=== PATIENT | female | born 1940 | race Caucasian/White ===

== ENCOUNTER → 2018-11-04 | Outpatient (CLI) | payer OTHER ==
--- NOTE | 2018-11-04 11:34 | REP ---
Ultrasound of the left popliteal fossa: There is no evidence of Ngo's cyst or other focal fluid collection. The study is otherwise unremarkable. Surveillance Agent images of the right popliteal fossa are also performed. . There is no right popliteal cyst or other abnormality on the right. Electronically Signed by Terrence Bowling MD 11/04/2018 11:25 A
== END ==
LOC: M RAD 10:42
PROVIDERS: ATTEND Orthopaedic Surgery Sports Medicine
DX: M17.12 Unilateral primary osteoarthritis, left knee (principal)

== ENCOUNTER → 2019-09-23 | Outpatient (CLI) | payer OTHER ==
[~2019-09-23] MED LIST: CALC; CALC PO; COQ-100C5 PO; CVS1CAP2 PO; FISH1000 PO; FOLI1TAB11 PO; LEVO75TA4 PO; LOVA40TA PO; MAG; MAG PO; MILK300C PO; PERC5TAB12 PO; RA T500C2 PO; RED1CAP5 PO; VITA30004 PO; VITAD1000T PO; XALA0.007 OS; XARE10TA PO; ZINC; ZINC PO; collagen PO
== END ==
LOC: M LABSMTC 10:26
PROVIDERS: ATTEND Anesthesiology
DX: Z11.59 Encounter for screening for other viral diseases (principal)
CPT/HCPCS: C9803; U0003

== ENCOUNTER 2019-09-26 07:16 | Inpatient (IN) | payer OTHER, MEDICARE ==
--- NOTE | 2019-09-23 06:58 | HPE ---
DATE OF PLANNED ADMISSION: 09/26/2019 ADMITTING DIAGNOSIS: Symptomatic left knee osteoarthritis. HISTORY OF PRESENT ILLNESS: This is a pleasant 78-year-old female with continuing symptomatic left knee osteoarthritis. She consented for a left total knee arthroplasty per Dr. Black Bolton. Medical optimization shows advanced tricompartmental knee osteoarthritis. Medical optimization per Dr. Galdamez. ALLERGIES: None known to medication. Although, the patient denied allergies today, in her prior note with Dr. Bolton, it says SULFA DRUGS are an allergy, so that should be on record. MEDICATION LIST: - levothyroxine sodium 112 mcg - lovastatin 10 mg MEDICAL PROBLEM LIST: Includes: 1. Symptomatic left knee osteoarthritis. 2. Hyperlipidemia. 3. Thyroid disease. SURGICAL HISTORY: 1. Appendectomy in 2012. 2. Cataract extraction, insertion of intraocular lens in 2012. 3. History of surgery 08/05/2012. 4. History of colonoscopy 04/17/2009. 5. History of hysterectomy. SOCIAL HISTORY: Denies smoking, alcohol, or illicit drugs. She just consumes alcohol at minimum occasionally. FAMILY HISTORY: Family history is positive for hypercholesteremia, thyroid disease, cancer. PHYSICAL EXAMINATION: Respiration 24, pulse 84, temperature 97.0, weight 181.2, height 63.5, blood pressure (BP) 120/70. She is a pleasant, well-developed, well-nourished, overweight female, in no acute distress, alert and orientated times three. Mood and affect are appropriate. She is ambulating without overt antalgia. She does favor the right lower extremity. No assistive device. Normocephalic. Neck: Supple. Negative jugular venous distention (JVD) or bruits. Lungs: Clear to auscultation. Chest rises symmetrically. Heart: Regular rate and rhythm. Bowels: Soft, nontender times four with sounds. Bilateral lower extremities: Skin is intact. Benign, noninfectious looking. Left knee positive medial joint line tenderness to palpation, crepitance involving knee through flexion/extension. Patellofemoral joint (PFJ) is congruent, static, and dynamic. Negative popliteal fossa mass or pain. Some varicosity noted in the lower extremity. No evidence of irritation or phlebitis. LABS: Chest x-ray, study date 06/08/2019: No acute cardiopulmonary disease, as read by Bernabe Dee MD. EKG per [facility] is read to show no changes, although I cannot make out who reviewed this, but it states that it is unchanged from her previous EKG, which is July 2015. *GFR greater 60. That is just reviewing; otherwise, normal. ALP 26, MCHC 32.7, MPV 8.7. Remaining labs are within normal limits within this CMP. IMPRESSION: 1. Left knee symptomatic tricompartmental advanced arthritis. 2. Patient consented for a left total knee arthroplasty per Dr. Black Bolton. 3. Medical optimization per Vito Galdamez DO. 4. carbonizer to operating room (OR) 2 grams intravenous (IV) Kefzol in OR. 5. Sequential compression device (SCD) and thromboembolism deterrents (TEDs) in OR. Patient requests minimal postoperative narcotics, if possible. She has previously taking tramadol and did not feel well with it. MTDD
[~2019-09-26] VITALS: Ht 160 cm; Wt 80.7 kg
[~2019-09-26 07:16] MED LIST changes: +BUPIVACAINE LIPOSOME/PF 1.3% 20ML VIAL (13.3MG/ML)(EXPAREL)(C9290 PER1MG) As Ordered ONE; +D31000TA2 PO; +EPINEPHrine INJ 1 MG/ML 1ML AMP As Ordered ONE; +LR 1,000 ML IV ONE; -PERC5TAB12 PO; +TRANEXAMIC ACID 100 MG/ML 10ML VIAL As Ordered ONE; -VITAD1000T PO; -XARE10TA PO; +ceFAZolin 1GM VIAL (J0690 PER 500MG) As Ordered ONE; +ceFAZolin SOD 2 GM in IV 1 EA IV ONE
[2019-09-26] MEDS ORDERED: ROPIvacaine 0.5% 30ML INJECTION (J2795 PER 1MG) ONE (07:17)
[2019-09-26] MEDS ORDERED: LIDOCAINE 1% MDV 20ML VIAL ONE (07:17)
[2019-09-26] MEDS ORDERED: dexameTHASONE 10MG/1ML VIAL PRES.FREE (J1100 PER 1MG) ONE (07:17)
[2019-09-26] MEDS ORDERED: MIDAZOLAM INJ 2MG/2ML VIAL (J2250 PER 1MG) As Ordered ONE ×2 (08:23→10:26)
[2019-09-26] MEDS ORDERED: fentaNYL 100 MCG/2 ML INJECTION (J3010) As Ordered ONE (08:23)
[2019-09-26] MEDS: MIDAZOLAM INJ 2MG/2ML VIAL (J2250 PER 1MG) IV PRN ×2 (08:55→08:57)
[2019-09-26] MEDS ORDERED: fentaNYL 100 MCG/2 ML INJECTION (J3010) IV PRN ×2 (09:00→11:15)
[2019-09-26] MEDS ORDERED: propofoL 500 MG/50 ML VIAL As Ordered ONE (10:26)
[2019-09-26] MEDS: LR 1,000 ML IV SCH (11:15)
[2019-09-26] MEDS ORDERED: MORPHINE 2 MG/ML 1ML VIAL (J2270) IV PRN (11:15)
[2019-09-26] MEDS ORDERED: PERCOCET 5MG/325MG TAB PO PRN ×2 (11:15→20:45)
[2019-09-26] MEDS ORDERED: MORPHINE 4 MG/ML 1ML VIAL/SYRINGE (J2270) IV PRN (11:15)
[2019-09-26] MEDS ORDERED: LR 1,000 ML IV SCH (11:15)
[2019-09-26] MEDS ORDERED: ONDANSETRON 4MG/2ML VIAL IV PRN ×2 (11:15)
[2019-09-26] MEDS ORDERED: oxyCODONE 5MG TAB PO PRN (11:15)
--- NOTE | 2019-09-26 11:22 | IPN ---
DATE: 09/26/2019 The patient is seen and examined. She wishes to go ahead with a left total knee arthroplasty. She understands the nature this the risks of bleeding, infection, damage to nerves, vessels, persistent pain, wear loosening, blood clots, medical problems, , among others.
[2019-09-26] MEDS ORDERED: MEPERIDINE INJ 25 MG/ML VIAL (J2175) As Ordered ONE (11:29)
[2019-09-26] MEDS ORDERED: MEPERIDINE INJ 25 MG/ML VIAL (J2175) IV PRN (11:45)
[2019-09-26 13:45] VITALS: BP 132/70
--- NOTE | 2019-09-26 14:10 | REP ---
LEFT KNEE, TWO VIEWS: AP and lateral views of the left knee performed. Total knee prosthesis is placed. Osseous structures are intact and well aligned. Metallic skin ying are seen anteriorly. Electronically Signed by Terrence Ibarra MD 09/26/2019 07:32 P
[2019-09-26 14:15] VITALS: BP 127/70
--- NOTE | 2019-09-26 15:04 | HPEPDOC ---
General Date of Admission 09/26/19 Date of Service: Sep 26, 2019 Chief Complaint The patient is a 78-year-old female admitted with a reason for visit of Left Knee Osteoarthritis. Source: Patient History of Present Illness Consultation report. Consultation requested by Dr Bolton: for medical comanagement. HISTORY OF PRESENT ILLNESS: This is a pleasant 78-year-old female with PMH of hyperlipidemia and hypothyroid admitted s/p elective left total knee arthroplasty for advanced tricompartmental osteoarthritis. At present pateint complains of left knee sharp stabbing pain about 6/10 intensity with no radiation at the surgical site. No other complaints. Home Medications Scheduled Folic Acid (Folic Acid) 1 Mg Tablet, 1 MG PO DAILY, (Reported) Lactobacillus Combo No.10 (Probiotic) 1 Each Capsule, 1 CAP PO DAILY, (Reported) Latanoprost (Xalatan) 0.005% 2.5ML Drops, 1 DROP OS QPM, (Reported) Levothyroxine Sodium (Levothyroxine Sodium) 75 Mcg Tablet, 75 MCG PO DAILY, (Reported) Lovastatin (Lovastatin) 40 Mg Tablet, 40 MG PO QPM, (Reported) Milk Thistle (Milk Thistle) 150 Mg Capsule, Unknown Dose PO DAILY, (Reported) [place]-3 Fatty Acids/Fish Oil (Fish Oil 1,000 mg Capsule) 1 Each Capsule, 1,000 MG PO DAILY, (Reported) Red Yeast Rice (Red Yeast Rice) 600 Mg Capsule, 300 MG PO DAILY, (Reported) Turmeric Root Extract (Turmeric) 500 Mg Capsule, 500 MG PO DAILY, (Reported) Ubidecarenone (Coq-10) 100 Mg Capsule, 100 MG PO DAILY, (Reported) [calc/mag/zinc] , 1 TAB PO DAILY, (Reported) [collagen] , 1 TAB PO DAILY, (Reported) Miscellaneous Medications Cholecalciferol (Vitamin D3) (Vitamin D3) 1,000 Unit Tablet, 3,000 UNITS PO, (Reported) Allergies Coded Allergies: Sulfa (Sulfonamide Antibiotics) (Verified Adverse Reaction, Intermediate, yeast infection, 09/19/19) Past Medical History Medical History 1. Hypothyroid 2. Hyperlipidemia 3. Glaucoma Surgical History 1. Appendectomy in 2012. 2. Cataract extraction, insertion of intraocular lens in 2012. 3. History of surgery 08/05/2012. 4. History of colonoscopy 04/17/2009. 5. History of hysterectomy. Family History Family history is positive for hypercholesteremia, thyroid disease, cancer. Social History * Smoker: Denies Alcohol: rarely Drugs: denies A-FIB/CHADSVASC A-FIB History Current/History of A-Fib/PAF?: No Review of Systems Constitutional: Denies: Chills, Fever, Night Sweats Eyes: Denies: Pain, Vision change ENT: Denies: Head Aches, Ear Pain, Dysphagia Skin: Denies: Rash, Lesions, Breakdown Pulmonary: Denies: Dyspnea, Cough Cardiovascular: Denies: Chest Pain, Palpitations, Orthopnea, Paroxysmal Noc. Dyspnea, Lt Headedness Gastrointestinal: Denies: Nausea, Vomiting, Abdominal Pain, Diarrhea Hematologic: Denies: Bruising, Bleeding Excessively Musculoskeletal: Reports: Joint Pain Physical Examination General Exam: Positive: Alert, Cooperative, No Acute Distress Eye Exam: Positive: PERRLA, Conjunctiva & lids normal, EOMI; Negative: Sclera icteric ENT Exam: Positive: Atraumatic, Mucous membr. moist/pink, Pharynx Normal Neck Exam: Positive: Supple; Negative: JVD, thyromegaly Chest Exam: Positive: Clear to auscultation, Normal air movement Heart Exam: Positive: Rate Normal, Regular Rhythm, Normal S1, Normal S2; Negative: Murmurs, Rubs Abdomen Exam: Positive: Normal bowel sounds, Soft; Negative: Tenderness, Hepatospenomegaly Extremity Exam: Negative: Clubbing, Cyanosis, Edema Skin Exam: Positive: Nl turgor and temperature, Other skin issue (surgical dressing on the left knee.); Negative: Breakdown, Lesion Vital Signs Vital Signs Date Time Temp Pulse Resp B/P (MAP) Pulse Ox O2 Delivery O2 Flow Rate FiO2 09/26/19 12:10 98.3 72 18 111/57 (75) 96 Room Air 09/26/19 11:00 2 Assessment/Plan This is a pleasant 78-year-old female with PMH of hyperlipidemia and hypothyroid admitted s/p elective left total knee arthroplasty for advanced tricompartmental osteoarthritis. Hospitalist consulted for management of medical commorbidities. S/P left total knee arthroplasty pain control and dvt prophylaxis as per ortho PT/OT Hypothyroid continue synthroid Hyperlipidemia statin , omega 3 fatty acid Glaucoma continue drops. Folic acid def continue folate OsteoPorosis and Vit D def continue calcium and Vit D. Plan / VTE VTE Prophylaxis Ordered?: Yes WANDA PORRAS MD Sep 26, 2019 14:49
[2019-09-26 15:15] VITALS: BP 128/70
[2019-09-26] MEDS: ACETAMINOPHEN TAB 650MG DOSE (2X325MG) PO PRN (15:27)
[2019-09-26 17:15] VITALS: BP 125/70
[2019-09-26] MEDS: ceFAZolin SOD 2 GM in IV 1 EA IV SCH (17:31)
[2019-09-26] MEDS: PERCOCET 5MG/325MG TAB PO PRN (20:53)
[2019-09-26] MEDS ORDERED: LATANOPROST 0.005% OPHTH SOLN 2.5 ML OS SCH (21:00)
[2019-09-26] MEDS ORDERED: SIMVASTATIN 40 MG TAB PO SCH (21:00)
[2019-09-26 22:00] VITALS: BP 128/71
[2019-09-27] MEDS: ceFAZolin SOD 2 GM in IV 1 EA IV SCH (01:20)
[2019-09-27] MEDS: PERCOCET 5MG/325MG TAB PO PRN ×2 (01:31→08:52)
[2019-09-27] MEDS: LR 1,000 ML IV SCH (01:33)
[2019-09-27 02:00] VITALS: BP 148/83
[2019-09-27 06:00] VITALS: BP 129/72
[2019-09-27] MEDS ORDERED: LEVOTHYROXINE 75MCG TABLET (0.075MG) PO SCH (06:00)
[2019-09-27] MEDS ORDERED: XARE10TA PO (07:01)
[2019-09-27] MEDS ORDERED: PERC5TAB12 PO (07:01)
[2019-09-27] MEDS: ACETAMINOPHEN TAB 650MG DOSE (2X325MG) PO PRN (08:52)
[2019-09-27] MEDS ORDERED: MIRALAX *UNIT DOSE* 17GM PACKET PO SCH (09:00)
[2019-09-27] MEDS ORDERED: FOLIC ACID 1 MG TAB PO SCH (09:00)
[2019-09-27] MEDS ORDERED: MOM 30ML SUSPENSION UDC PO SCH (09:00)
--- NOTE | 2019-09-27 11:01 | IPNPDOC ---
Text Note Date of Service The patient was seen on 09/27/19. NOTE Subjective: No fever, chills, noted bleeding, swelling.Pain well controlled Objective: Vitals: see below, HDS and afebrile General: Alert, Cooperative, No Acute Distress Eye: PERRLA, Conjunctiva & lids normal, EOMI, anicteric ENT: Atraumatic, Mucous membr. moist/pink Neck: Supple, no JVD Chest: Clear to auscultation, Normal air movement Heart: Rate Normal, Regular Rhythm, Normal S1, Normal S2, no m/r/g Abdomen: Normal bowel sounds, soft, NTND Extremity: no Edema, WWP. Mild L knee swelling. Skin Exam: surgical dressing on the left knee, with small blood on dressing otherwise no drainage, no active bleeding or sorrounding erythema. Labs: reviewed. none this AM 2 Assessment: 78-year-old W with hyperlipidemia and hypothyroid admitted s/p elective left total knee arthroplasty for advanced tricompartmental osteoarthritis with internal medicine consulted for management of medical comorbidities. S/P left total knee arthroplasty -pain control and dvt prophylaxis as per ortho -PT/OT Hypothyroid -continue synthroid Hyperlipidemia -statin , omega 3 fatty acid Glaucoma -continue drops. Folic acid def -continue folate Osteoporosis and Vit D def -continue calcium and Vit D. Dispo: per ortho, likely home today. VS,Fishbone, I+O VS, Fishbone, I+O Vital Signs Date Time Temp Pulse Resp B/P (MAP) Pulse Ox O2 Delivery O2 Flow Rate FiO2 09/27/19 06:00 98.1 85 16 129/72 (91) 95 Room Air 09/26/19 11:00 2 I&O- Last 24 Hours up to 6 AM 09/27/19 05:59 Intake Total 940 ml Output Total 50 ml Balance 890 ml SANDY READ MD Sep 27, 2019 08:43
[2019-09-27] MEDS ORDERED: RIVAROXABAN 10 MG TAB (XARELTO) PO SCH (18:00)
--- NOTE | 2019-09-28 11:10 | RO ---
DATE OF PROCEDURE: 09/26/2019 PREOP DIAGNOSIS: Left knee osteoarthritis. POSTOPERATIVE DIAGNOSIS: Left knee osteoarthritis. PROCEDURE: Left total knee arthroplasty using Attune rotating platform posterior stabilized size 4 femur, size 3 tibia, 10 polyethylene, 32 patellar button. SURGEON: Dr. Black Bolton. PIPELINE INSPECTOR: Flores Bolton PA-C ANESTHESIA: Spinal. ESTIMATED BLOOD LOSS: 50 mL COMPLICATIONS: None. INDICATIONS: 78-year-old who has had gradually worsening left knee pain and wished to go ahead with a knee replacement. Preop clearance was obtained. DESCRIPTION OF PROCEDURE: The patient was taken to the operating room and placed the supine position after spinal anesthesia was anesthesia was induced. The left lower extremity was then prepped and draped in the usual sterile fashion. Time-out was performed. Tourniquet was inflated and I created a longitudinal incision over the anterior aspect the knee. A medial parapatellar arthrotomy was performed per routine. I then everted the patella, flexed the knee up, removed any osteophytes. Then used the canal initiating reamer followed by the intramedullary guide set at 5 degrees of valgus and 9 mm cut. This was pinned in place. The distal femoral cut was made protecting soft tissues and I sized the femur to be a 4. The drill holes were placed in the end of the femur with the external rotation dialed in. I then secured the size 4 cutting block, made the remaining four cuts in the usual fashion protecting soft tissues. I then prepared the sulcus cut on the femur with the guide and the saw. I then used the tibial alignment guide, set at the appropriate amount of valgus and posterior slope. Pinned this in place at 4 mm off the low side, which was medial and actually quite sclerotic. I check with the external alignment guide, was pleased with that and then I made the proximal tibia cut removing excess bone. I then used a blocker metal base and removed soft tissue and osteophytes from either side of the knee. The posterior cruciate ligament (PCL) was intact. I then used the spacer blocks and felt that the size 10 was the most appropriate in flexion/extension and excellent balance alignment. I then prepared the tibial tray with a size 3 tray was pinned in [address], drilled and broached and the trial components were placed with the 10 polyethylene and there was excellent stability. Excellent fit and alignment. I then freehand cut the patella removing about 7 mm of bone and sized to be a 32. Drill holes were placed and I also placed the drill holes in the end of the femur. The patella tracked very nicely. The printer floor covering assistant prepared the bone cement in the modern technique on the back table. I irrigated and dried the bony surfaces, placed the Exparel in the deep tissues and cemented on the components, removing excess bone cement. Brought the knee out in extension, cemented on the patella, removed excess bone cement. Placed the TXA deep in the wound. I irrigated prior to this and then following placement of TXA. I then closed the deep layer with #1 Vicryl suture in interrupted fashion followed by running Stratafix in both directions. The patellar clamp had been removed once the cement hardened. Once there was a watertight closure, I put the knee through range of motion. The patella was tracked quite nicely. I lower the tourniquet. Copiously irrigated, closed subcu with #2-0 Vicryl and the skin with ying. Sterile dressing was applied. Tourniquet had been deflated. She was taken to recovery room stable condition. No known complications. Plan will be routine postop. The printer floor covering assistant was instrumental in holding retractors and assisting in mixing the bone cement and assisting in wound closure.
--- NOTE | 2019-10-22 17:29 | DSES ---
DATE OF ADMISSION: 09/26/2019 DATE OF DISCHARGE: 09/27/2019 ADMITTING DIAGNOSIS: Left knee osteoarthritis. OTHER DIAGNOSES: 1. Hyperlipidemia. 2. Hypothyroid. DISCHARGE DIAGNOSIS: Left knee osteoarthritis, status post left total knee arthroplasty. HOSPITAL COURSE: The patient is a 79-year-old female with progressively worsening left knee pain and stiffness. She failed to improve with conservative measures. She continued to have symptoms with weightbearing activities and activities of daily living. She consented for an elective left total knee arthroplasty with Dr. Bolton for her continued symptoms. OPERATION PERFORMED: Left total knee arthroplasty. HOSPITAL COURSE: The patient underwent a left total knee arthroplasty under spinal anesthesia, which was uneventful. Her hospital course was without complication. She was up with physical therapy per their protocol, weightbearing as tolerated on the left lower extremity. The patient was discharged on oral pain medications and will resume her preoperative medications and diet. The patient will use her thromboembolic deterrent stockings and take her anticoagulant postoperatively to prevent deep venous thrombosis. The patient will followup in our office in 12-14 days for a wound check and staple removal. She is encouraged to contact our office sooner if there is any increase in pain, drainage, numbness or tingling in the extremity, swelling, fever greater than 101 degrees, or any other concerns. Please see medical records for additional details. SONIA
== END 2019-09-27 11:30 | disposition home or self-care (01) | DRG 470 ==
LOC: M SDC 07:16 → EDSTATUS 07:30 → M MS5PR 13:40 → M SDC 13:40 → M MS5PR 14:28 → M SDC 09-27 11:30 → M MS5PR 09-27 11:30
PROVIDERS: ADMIT Orthopaedic Surgery; ATTEND Orthopaedic Surgery
PROC: 0SRD0J9 Replacement of Left Knee Joint with Synthetic Substitute, Cemented, Open Approach (ICD-10-PCS; principal; 2019-09-26 09:15)
DX: M17.12 Unilateral primary osteoarthritis, left knee (principal); E78.5 Hyperlipidemia, unspecified; Z88.2 Allergy status to sulfonamides; E03.9 Hypothyroidism, unspecified; Z79.899 Other long term (current) drug therapy; H40.9 Unspecified glaucoma; E55.9 Vitamin D deficiency, unspecified; M81.0 Age-related osteoporosis without current pathological fracture; E53.8 Deficiency of other specified B group vitamins